=== PATIENT | male | born 1980 ===

== ENCOUNTER 2017-08-27 20:25 | Observation (INO) | payer OTHER ==
--- NOTE | 2017-08-27 21:43 | ED PDOC ---
HPI: Chest Pain Time Seen by Provider: 08/27/17 20:39 Chief Complaint (Nursing): Chest Pain Chief Complaint (Provider): Chest Pain History Per: Patient History/Exam Limitations: no limitations Onset/Duration Of Symptoms: Days (x1 week) Current Symptoms Are (Timing): Still Present Additional Complaint(s): Roddy Erickson is a 36 year old right hand dominant male with no significant past medical history who presents to the ED complaining of left sided chest pain x1 week. Patient states that over the course of a week the pain has begun radiating to his left arm with associated paresthesias all the way to his fingers. States he specifically feels numbness at the fingertips of his 1st, 2nd , and 3rd digits. Reports shortness of breath and decreased exercise tolerance. Confirms lightheadedness and fatigue. Denies any leg swelling, cough, fever, or chills. 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 PMD: None Past Medical History Reviewed: Historical Data, Nursing Documentation, Vital Signs Vital Signs: Last Vital Signs Temp 98.2 F 08/28/17 15:36 Pulse 72 08/28/17 15:36 Resp 20 08/28/17 15:36 BP 119/73 08/28/17 15:36 Pulse Ox 97 08/28/17 15:36 - Medical History PMH: No Chronic Diseases - Surgical History Surgical History: No Surg Hx - Family History Family History: States: Hypertension - Social History Current smoker - smoking cessation education provided: No Ex-Smoker (has not smoked in the last 12 months): No Alcohol: Social Drugs: Denies - Home Medications Home Medications: Ambulatory Orders Medication Instructions Recorded Naproxen [Naprosyn] 1 tab PO BID PRN #30 tab 08/27/17 Non-Formulary 1 ea .ROUTE ONCE #1 ea 08/27/17 - Allergies Allergies/Adverse Reactions: Allergies Allergy/AdvReac Type Severity Reaction Status Date / Time No Known Allergies Allergy Verified 08/27/17 20:35 Review of Systems ROS Statement: Except As Marked, All Systems Reviewed And Found Negative Constitutional: Positive for: Other (Fatigue). Negative for: Fever, Chills Cardiovascular: Positive for: Chest Pain (left sided with associated paresthesias to fingertips ), Light Headedness Respiratory: Positive for: Shortness of Breath, SOB with Exertion. Negative for : Cough Musculoskeletal: Negative for: Leg Pain (swelling) - Laboratory Results Result Diagrams: 08/27/17 21:50 08/27/17 21:50 - ECG ECG: Positive for: Interpreted By Me ECG Rhythm: Positive for: Normal QRS, Normal ST Segment, Sinus Rhythm O2 Sat by Pulse Oximetry: 98 (RA) Pulse Ox Interpretation: Normal - Radiology X-Ray: Interpreted by Me X-Ray Interpretation: No Acute Disease Medical Decision Making Medical Decision Making: Time: 21:16 Initial Impression: Chest pain and left sided paresthesias. Differentials include ACS, electrolyte abnormality, carpal tunnel, costochondritis, and anxiety Plan: --EKG --B-Type natriuretic peptide --CMP --Magnesium --Phosphorus --TSH --Troponin I --CBC w/ differential --D Dimer --Chest X-Ray 2 views --IV insertion --Reevaluation labs unremarkable. However repeat EKG demonstrates changes in lateral leads. Concern for ischemic changes. LIZ pt and Dr Quinn Hospitalist for observation to r/o ACS. Scribe Attestation: Documented by Howie Dsouza acting as a scribe for Makayla Albrecht MD. Scribe Attestation: All medical record entries made by the Scribe were at my direction and personally dictated by me. I have reviewed the chart and agree that the record accurately reflects my personal performance of the history, physical exam, medical decision making, and the department course for this patient. I have also personally directed, reviewed, and agree with the discharge instructions and disposition. Disposition - Clinical Impression Clinical Impression: Chest pain, Carpal tunnel syndrome of left wrist - Disposition Disposition Time: 00:00 Condition: SERIOUS - Pt Status Changed To: Hospital Disposition Of: Observation - POA Present On Arrival: None
[2017-08-27 21:58] LABS: BASO % 0.5 % (0.0-2.0); EOS # 0.1 K/uL (0.0-0.7); EOS % 1.2 % (0.0-4.0); HEMATOCRIT 45.4 % (35.0-51.0); LYMPH # 3.2 K/uL (1.0-4.3); LYMPH % 43.2 % (20.0-40.0); MEAN CELL VOLUME 88.5 fl (80.0-94.0); MEAN CORPUSCULAR HEMOGLOBIN 30.5 pg (27.0-31.0); MEAN CORPUSCULAR HGB CONC 34.4 g/dL (33.0-37.0); MEAN PLATELET VOLUME 8.9 fl (7.2-11.7); MONO # 0.6 K/uL (0.0-0.8); MONO % 8.4 % (0.0-10.0); NEUT # 3.4 K/uL (1.8-7.0); NEUT % 46.7 % (50.0-75.0); NRBC % 0.1 % (0.0-0.0); RED CELL DISTRIBUTION WIDTH 13.8 % (11.5-14.5); WHITE BLOOD COUNT 7.3 K/uL (4.8-10.8)
[2017-08-27 22:12] LABS: ALB/GLOB RATIO 1.3 (1.0-2.1); ALKALINE PHOSPHATASE 90 U/L (38-126); ALT/SGPT 213 U/L (21-72); AST/SGOT 82 U/L (17-59); BILIRUBIN,TOTAL 1.7 mg/dl (0.2-1.3); BLOOD UREA NITROGEN 13 mg/dl (9-20); CALCIUM 9.2 mg/dL (8.4-10.2); CARBON DIOXIDE 24 mmol/L (22-30); CHLORIDE 103 mmol/L (98-107); GFR AFRICAN-AMERICAN > 60; GLUCOSE,RANDOM 91 mg/dL (75-110); MAGNESIUM 2.2 MG/DL (1.6-2.3); PHOSPHOROUS 3.7 mg/dl (2.5-4.5); POTASSIUM 3.7 MMOL/L (3.6-5.0); SODIUM 138 mmol/l (132-148)
[2017-08-27 22:46] LABS: THYROID STIMULATING HORMONE 4.39 mIU/ML (0.46-4.68)
--- NOTE | 2017-08-27 23:26 | CP.PCM.HP ---
History of Present Illness - History of Present Illness History of Present Illness: PCP: None Chief Complaint: Chest Pain The patient was seen and examined in the ED HPI: 36 years old male speaking only [place], with no significant past medical hx, comes with 2 weeks of a pressure type, intermittent left chest pain that increases with exertion and radiates to the left upper extremity, with numbness down to the 1st, 2nd and 3rd fingers. The pain is not relieved by Advil and is associated with dizziness and nausea. He also refers numbness to the left upper and left lower extremities prior to the chest pain. No hx of trauma. He also has 2 days of diarrhea and urinary frequency. No Dysuria, Fever nor cough. 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 absent: Anorexia, Chills, Fatigue, Fever - EENT Eyes: absent: Blurred Vision, Diplopia, Floaters, Requires Corrective Lenses Ears: absent: Decreased Hearing, Tinnitus Nose/Mouth/Throat: absent: Epistaxis, Nasal Congestion, Sinus Pain, Sinus Pressure - Cardiovascular Cardiovascular: Chest Pain, Dyspnea. absent: Leg Edema - Respiratory Respiratory: absent: Cough, Hemoptysis, Wheezing, Snoring, Chest Congestion - Gastrointestinal Gastrointestinal: Diarrhea, Nausea. absent: Abdominal Pain, Constipation, Vomiting - Musculoskeletal Musculoskeletal: Numbness Additional comments: Chest Pain - Integumentary Integumentary: New Lesions. absent: Pruritus, Rash, Skin Ulcer, Striae, Swelling - Neurological Neurological: Dizziness, Paresthesias. absent: Confusion, Numbness, Focal Weakness, Headaches, Weakness Additional comments: Left upper and lower extremities numbness. - Psychiatric Psychiatric: Anxiety. absent: Depression, Panic Attacks - Endocrine Endocrine: absent: Palpitations, Polydipsia, Polyphagia, Polyuria - Hematologic/Lymphatic Hematologic: absent: Easy Bleeding, Easy Bruising Past Patient History - Past Medical History & Family History Past Medical History?: No - Past Social History Smoking Status: Light Smoker < 10 Cigarettes Daily Cigar Use: No Alcohol: Social Home Situation {Lives}: With Family - CARDIAC Hx Cardiac Disorders: No - PULMONARY Hx Respiratory Disorders: No - NEUROLOGICAL Hx Neurological Disorder: No - HEENT Hx HEENT Problems: No - RENAL Hx Chronic Kidney Disease: No - ENDOCRINE/METABOLIC Hx Endocrine Disorders: No - HEMATOLOGICAL/ONCOLOGICAL Hx Blood Disorders: No - INTEGUMENTARY Hx Dermatological Problems: No - MUSCULOSKELETAL/RHEUMATOLOGICAL Hx Musculoskeletal Disorders: No - GASTROINTESTINAL Hx Esophageal Varices: Yes - PSYCHIATRIC Hx Psychophysiologic Disorder: No Hx Substance Use: No - SURGICAL HISTORY Hx Surgeries: No - ANESTHESIA Hx Anesthesia: No Meds Home Medications: Home Medication List Medication Instructions Recorded Confirmed Type Naproxen [Naprosyn] 1 tab PO BID PRN #30 tab 08/27/17 Rx Non-Formulary 1 ea .ROUTE ONCE #1 ea 08/27/17 Rx Allergies/Adverse Reactions: Allergies Allergy/AdvReac Type Severity Reaction Status Date / Time No Known Allergies Allergy Verified 08/27/17 20:35 Physical Exam - Constitutional Appears: No Acute Distress - Head Exam Head Exam: ATRAUMATIC, NORMAL INSPECTION, NORMOCEPHALIC - Eye Exam Eye Exam: EOMI, Normal appearance Pupil Exam: NORMAL ACCOMODATION, PERRL - ENT Exam ENT Exam: Mucous Membranes Moist, Normal Exam, Normal External Ear Exam - Neck Exam Neck exam: Positive for: Full Rom, Normal Inspection, Tenderness. Negative for : Lymphadenopathy - Respiratory Exam Respiratory Exam: Clear to Auscultation Bilateral. absent: Rales, Rhonchi, Wheezes - Cardiovascular Exam Cardiovascular Exam: REGULAR RHYTHM, RRR, +S1, +S2 - Rectal Exam Rectal Exam: Deferred - Extremities Exam Extremities exam: Positive for: full ROM, normal inspection. Negative for: calf tenderness, joint swelling - Back Exam Back exam: NORMAL INSPECTION. absent: CVA tenderness (L), CVA tenderness (R) - Neurological Exam Neurological exam: Alert, CN II-XII Intact, Oriented x3, Reflexes Normal - Psychiatric Exam Psychiatric exam: Normal Affect, Normal Mood - Skin Skin Exam: Dry, Intact, Normal Color, Pallor Results - Vital Signs Recent Vital Signs: Last Vital Signs Temp 98.2 F 08/27/17 23:25 Pulse 66 08/27/17 23:25 Resp 20 08/27/17 23:25 BP 141/104 H 08/27/17 23:25 Pulse Ox 98 12/21/17 23:25 - Labs Result Diagrams: 08/27/17 21:50 08/27/17 21:50 Labs: Laboratory Results - last 24 hr 08/27/17 08/27/17 08/27/17 21:50 21:50 21:50 WBC 7.3 RBC 5.13 Hgb 15.6 Hct 45.4 MCV 88.5 MCH 30.5 MCHC 34.4 RDW 13.8 Plt Count 211 MPV 8.9 Neut % (Auto) 46.7 L Lymph % (Auto) 43.2 H [place] % (Auto) 8.4 Eos % (Auto) 1.2 Baso % (Auto) 0.5 Neut # 3.4 Lymph # 3.2 [place] # 0.6 Eos # 0.1 Baso # 0.0 D-Dimer, Quantitative 161 Sodium 138 Potassium 3.7 Chloride 103 Carbon Dioxide 24 Anion Gap 15 BUN 13 Creatinine 0.7 L Est GFR ( Amer) > 60 Est GFR (Non-Af Amer) > 60 Random Glucose 91 Calcium 9.2 Phosphorus 3.7 Magnesium 2.2 Total Bilirubin 1.7 H AST 82 H ALT 213 H Alkaline Phosphatase 90 Troponin I < 0.0120 NT-Pro-B Natriuret Pep 16.7 Total Protein 8.0 Albumin 4.5 Globulin 3.6 Albumin/Globulin Ratio 1.3 TSH 3rd Generation 4.39 - EKG Data EKG comments: EKG: !. NSR 63/min no sign of ischemia - Imaging and Cardiology Chest x-ray Status: Image reviewed by me Additional comment: No infiltrate CT scan - head Status: Image reviewed by me, Report reviewed by me Additional comment: EXAM: CT Head Without Intravenous Contrast FINDINGS: Brain: Minimal atrophy. No intracranial hemorrhage. No mass. Small parenchymal calcification. Dilated perivascular space vs chronic lacunar infarct about LEFT basal ganglia. No definite edema. Ventricles: No hydrocephalus. Bones/joints: No acute fracture. Soft tissues: Unremarkable. Sinuses: No acute sinusitis. Mastoid air cells: No mastoid effusion. Orbits: Unremarkable as visualized. IMPRESSION: 1. No definite acute intracranial abnormality. Acute infarction may be CT occult within first 24 hours. If a focal deficit persists, consider followup CT or MRI for further evaluation. 2. Incidental/non-acute findings are described above. Assessment & Plan - Assessment and Plan (Free Text) Assessment: #. Chest pain #. Elevated Liver enzynes #. Paresthesias to left upper and lower extremity #. Diarrhea #. Alcohol use Plan: 36 years old male speaking only [place], with no significant past medical hx, comes with 2 weeks of a pressure type, intermittent left chest pain that increases with exertion and radiates to the left upper extremity, with numbness down to the 1st, 2nd and 3rd fingers. He also refers numbness to the left upper and left lower extremities prior to the chest pain. No hx of trauma. He also has 2 days of diarrhea and urinary frequency. #. Chest pain, Could be musculo skeletal from work r/o ACS - Consult Dr Gonzalez Cardiology - Serial Troponin - EKG - ECHO #. Paresthesias to left upper and left lower extremities. No headaches nor neck pain, speech is clear and no weakness. He does refer some dizziness. r/o Herneated disc in the Cervical spine/ Cerebellar stroke less likely. Patient does heavy lifting in his job and so r/o stretched nerve at the neck - CT head shows no abnormality - Consult Dr chandra neurology - MRI of Brain and neck #. Elevated Liver enzymes with Alt > AST with elevated Biluribin. Alcohol liver disease possible but less likely. r/o Hepatitis - GGT - Hepatitis Panel - Follow Liver enzymes #. Diarrhea - C Diff - Stool for C&S #. Alcohol use - Banana Bag with Thiamine, Multivimin, Folic Acid #. Hx of Gastritis - Pepcid #. DVT prophylaxis with SCD #. Code Status: Full - Date & Time Date: 08/27/17 Time: 23:26
[2017-08-28] MEDS ORDERED: Multivitamin (MVI) 10 ML, Thiamine 100 MG in Sodium Chloride 0.9% 1,000 ML IV ONE (00:31)
[2017-08-28 08:00] LABS: CHOLESTEROL 230 mg/dL (0-199)
--- NOTE | 2017-08-28 08:03 | RAD ---
HISTORY: chest pain COMPARISON: No prior. TECHNIQUE: Chest PA and lateral FINDINGS: LUNGS: No active pulmonary disease. PLEURA: No significant pleural effusion identified. No pneumothorax apparent. CARDIOVASCULAR: Normal. OSSEOUS STRUCTURES: No significant abnormalities. VISUALIZED UPPER ABDOMEN: Normal. OTHER FINDINGS: None. IMPRESSION: No acute cardiopulmonary disease appreciated.
[2017-08-28 08:25] VITALS: RESP 20
--- NOTE | 2017-08-28 08:47 | CP.PCM.PN ---
Subjective - Date & Time of Evaluation Date of Evaluation: 08/28/17 Time of Evaluation: 08:00 - Subjective Subjective: No overnight events. Patient seen and evaluated at the bedside this morning. Denies complaints of chest pain overnight or this morning. Reports that his Left sided weakness- upper and lower extremity has resolved but he is still experiencing numbness in his first 3 digits of her left hand. Upon further questioning, pt admits to having posterior neck pain for the past month that he believes is from lifting heavy boxes for his job. Denies SOB, cough, headache, fever, chills, neck rigidity, photophobia, blurry vision, dysphagia. Objective - Vital Signs/Intake and Output Vital Signs (last 24 hours): Temp Pulse Resp BP Pulse Ox 98.6 F 77 20 136/75 96 08/28/17 08:00 08/28/17 08:00 08/28/17 08:00 08/28/17 08:00 08/28/17 08:00 - Medications Medications: Current Medications Atorvastatin Calcium (Lipitor) 10 mg PO DAILY JEREMY Famotidine (Pepcid) 20 mg PO BID JEREMY Last Admin: 08/28/17 01:19 Dose: 20 mg Multivitamins/Vitamin C 10 ml/Thiamine HCl 100 mg/ Sodium Chloride 1,011 mls @ 100 mls/hr IV .Q10H7M ONE Stop: 08/28/17 10:37 Last Admin: 08/28/17 03:11 Dose: 100 mls/hr Lorazepam (Ativan) 0.5 mg IVP Q6 PRN PRN Reason: Agitation - Labs Labs: 08/27/17 21:50 08/27/17 21:50 - Constitutional Appears: Well, Non-toxic, No Acute Distress - Head Exam Head Exam: ATRAUMATIC, NORMAL INSPECTION - Eye Exam Eye Exam: EOMI, Normal appearance, PERRL. absent: Nystagmus, Scleral icterus Pupil Exam: PERRL - ENT Exam ENT Exam: Mucous Membranes Moist - Neck Exam Neck Exam: Full ROM, Tenderness. absent: Lymphadenopathy, Meningismus, Thyromegaly Additional comments: Tenderness to palpation in posterior neck, no masses palpated, full ROM, patient reports pain on full flexion of neck - Respiratory Exam Respiratory Exam: Clear to Ausculation Bilateral. absent: Accessory Muscle Use , Rales, Wheezes, Respiratory Distress - Cardiovascular Exam Cardiovascular Exam: +S2. absent: Murmur Additional comments: Mild tenderness to palpation over left chest wall - GI/Abdominal Exam GI & Abdominal Exam: Soft, Normal Bowel Sounds. absent: Distended, Tenderness, Hernia, Organomegaly - Extremities Exam Extremities Exam: Normal Capillary Refill, Normal Inspection. absent: Calf Tenderness, Pedal Edema - Back Exam Back Exam: NORMAL INSPECTION. absent: vertebral tenderness - Neurological Exam Neurological Exam: Alert, Awake, CN II-XII Intact, Oriented x3. absent: Motor Sensory Deficit Neuro motor strength exam: Left Upper Extremity: 5, Right Upper Extremity: 5, Left Lower Extremity: 5, Right Lower Extremity: 5 - Psychiatric Exam Psychiatric exam: Normal Affect - Skin Skin Exam: Normal Color Assessment and Plan - Assessment and Plan (Free Text) Assessment: 36 years old male speaking only [place] Citizen, with no significant past medical hx, comes with 2 weeks of a pressure type, intermittent left chest pain that increases with exertion and radiates to the left upper extremity, with numbness down to the 1st, 2nd and 3rd fingers. He also refers numbness to the left upper and left lower extremities prior to the chest pain. No hx of trauma. He also has 2 days of diarrhea and urinary frequency. # Chest pain, Atypical -Could be MSK strain from work. Tender to palpation. Need to r/o ACS -EKG NSR, Troponin negative x2 -Repeat EKG in am - Cardiac consultation appreciated- Atypical chest pain, No evidence of ACS, will review echo - ECHO normal, EF>55% # Paresthesias, unilateral, acute -Pt's hx of neck pain and dermatomal distribution of sensory loss suggestive of Cervical Radiculopathy. Need to rule out CVA. 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 - CT head shows no abnormality - Consult Dr chandra neurology - MRI of Brain and neck - Cervical Spine MRI - F/u B12, Folate, RPR #. Elevated Liver enzymes with Alt > AST with elevated Biluribin. Alcohol liver disease possible but less likely. r/o Hepatitis - GGT - Hepatitis Panel normal - Follow Liver enzymes # Diarrhea - Improving - C Diff sent - Stool for C&S - C/W IV hydration # Alcohol use - Banana Bag with Thiamine, Multivimin, Folic Acid -Monitor for signs of ETOH withdrawal # Hx of Gastritis - Pepcid #. DVT prophylaxis with SCD #. Code Status: Full
[2017-08-28] MEDS ORDERED: Gadodiamide 287 MG/ML VIAL (15ML) IV ONE (09:42)
--- NOTE | 2017-08-28 11:01 | CT ---
PROCEDURE: CT HEAD WITHOUT CONTRAST. HISTORY: Numbness to left upper and left lower extremities COMPARISON: None available. TECHNIQUE: Axial computed tomography images were obtained through the head/brain without intravenous contrast. Radiation dose: Total exam DLP = 840.84 mGy-cm. This CT exam was performed using one or more of the following dose reduction techniques: Automated exposure control, adjustment of the mA and/or kV according to patient size, and/or use of iterative reconstruction technique. FINDINGS: HEMORRHAGE: No intracranial hemorrhage. BRAIN: No mass effect or edema. No atrophy or chronic microvascular ischemic changes. Nodular calcification right parietal, possibly parenchymal versus cortical. Nonspecific. No evidence of acute infarct. VENTRICLES: Unremarkable. No hydrocephalus. CALVARIUM: Unremarkable. PARANASAL SINUSES: Unremarkable as visualized. No significant inflammatory changes. MASTOID AIR CELLS: Unremarkable as visualized. No inflammatory changes. OTHER FINDINGS: None. IMPRESSION: No intracranial mass, hemorrhage or evidence of acute infarct. Preliminary interpretation of this examination was reported by [facility] at 1:19 a.m. on 08/28/2017. There is concurrence of this report with the preliminary interpretation.
--- NOTE | 2017-08-28 11:18 | CP.PCM.CON ---
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 This was not accompanied by any nausea vomiting or abrupt perspiration. The patient has no prior illness and does not take any medications. He denies any history of hypertension or diabetes or dyslipidemia. Has no prior cardiac issues. Denies history of smoking or excessive alcohol use. Denies any recreational drug use. There is no significant family history. The patient was not taking any medications in the past. Physical examination shows an anxious young man who is slightly overweight. He is alert awake" weren't. Afebrile. His pulse rate was 68 bpm and regular and his blood pressure was 124/74 mmHg. His extremities were warm his nailbeds were pink. There was no central or peripheral cyanosis. There was no clubbing. There was mild degree of tenderness in the left pectoral area there is discomfort corresponded to the type of pain the patient had experienced before coming into the hospital. His apex was not palpable. His first and second heart sounds are normal. There was no murmur or gallop. There were no rales. His abdomen was soft liver and spleen are not palpable. His electrocardiograms done 3 times since his arrival in the emergency room show consistently sinus rhythm with normal EKG pattern. There was no ST-T changes suggestive of myocardial ischemia. His troponin levels were normal which indicated that there had been no myocyte injury. The patient awaits an echocardiogram and just finished having his EEG. MRI of the brain has not revealed any acute pathological findings. Impression: Atypical chest pain with no evidence of acute coronary syndrome. Rule out cervical radiculopathy. The patient is stable from cardiovascular point of few I Will review echocardiographic images once the echocardiogram is done. Past Patient History - Past Medical History & Family History Past Medical History?: No - Past Social History Smoking Status: Light Smoker < 10 Cigarettes Daily Cigar Use: No Alcohol: Social Home Situation {Lives}: With Family - CARDIAC Hx Cardiac Disorders: No - PULMONARY Hx Respiratory Disorders: No - NEUROLOGICAL Hx Neurological Disorder: No - HEENT Hx HEENT Problems: No - RENAL Hx Chronic Kidney Disease: No - ENDOCRINE/METABOLIC Hx Endocrine Disorders: No - HEMATOLOGICAL/ONCOLOGICAL Hx Blood Disorders: No - INTEGUMENTARY Hx Dermatological Problems: No - MUSCULOSKELETAL/RHEUMATOLOGICAL Hx Musculoskeletal Disorders: No - GASTROINTESTINAL Hx Esophageal Varices: Yes - GENITOURINARY/GYNECOLOGICAL Hx Genitourinary Disorders: No - PSYCHIATRIC Hx Psychophysiologic Disorder: No Hx Substance Use: No - SURGICAL HISTORY Hx Surgeries: No - ANESTHESIA Hx Anesthesia: No Meds Home Medications: Home Medication List Medication Instructions Recorded Confirmed Type Naproxen [Naprosyn] 1 tab PO BID PRN #30 tab 08/27/17 Rx Non-Formulary 1 ea .ROUTE ONCE #1 ea 08/27/17 Rx Allergies/Adverse Reactions: Allergies Allergy/AdvReac Type Severity Reaction Status Date / Time No Known Allergies Allergy Verified 08/27/17 20:35 - Medications Medications: Current Medications Atorvastatin Calcium (Lipitor) 10 mg PO HS JEREMY Famotidine (Pepcid) 20 mg PO BID JEREMY Last Admin: 08/28/17 01:19 Dose: 20 mg Lorazepam (Ativan) 0.5 mg IVP Q6 PRN PRN Reason: Agitation Results - Vital Signs Recent Vital Signs: Last Vital Signs Temp 98.6 F 08/28/17 08:00 Pulse 77 08/28/17 08:00 Resp 20 08/28/17 08:00 BP 136/75 08/28/17 08:00 Pulse Ox 96 08/28/17 08:00 - Labs Result Diagrams: 08/27/17 21:50 08/27/17 21:50 Labs: Laboratory Results - last 24 hr 08/27/17 08/27/17 08/27/17 21:50 21:50 21:50 WBC 7.3 RBC 5.13 Hgb 15.6 Hct 45.4 MCV 88.5 MCH 30.5 MCHC 34.4 RDW 13.8 Plt Count 211 MPV 8.9 Neut % (Auto) 46.7 L Lymph % (Auto) 43.2 H [place] % (Auto) 8.4 Eos % (Auto) 1.2 Baso % (Auto) 0.5 Neut # 3.4 Lymph # 3.2 [place] # 0.6 Eos # 0.1 Baso # 0.0 D-Dimer, Quantitative 161 Sodium 138 Potassium 3.7 Chloride 103 Carbon Dioxide 24 Anion Gap 15 BUN 13 Creatinine 0.7 L Est GFR ( Amer) > 60 Est GFR (Non-Af Amer) > 60 Random Glucose 91 Calcium 9.2 Phosphorus 3.7 Magnesium 2.2 Total Bilirubin 1.7 H GGT AST 82 H ALT 213 H Alkaline Phosphatase 90 Troponin I < 0.0120 NT-Pro-B Natriuret Pep 16.7 Total Protein 8.0 Albumin 4.5 Globulin 3.6 Albumin/Globulin Ratio 1.3 Triglycerides Cholesterol LDL Cholesterol Direct HDL Cholesterol TSH 3rd Generation 4.39 08/28/17 04:40 WBC RBC Hgb Hct MCV MCH MCHC RDW Plt Count MPV Neut % (Auto) Lymph % (Auto) [place] % (Auto) Eos % (Auto) Baso % (Auto) Neut # Lymph # [place] # Eos # Baso # D-Dimer, Quantitative Sodium Potassium Chloride Carbon Dioxide Anion Gap BUN Creatinine Est GFR ( Amer) Est GFR (Non-Af Amer) Random Glucose Calcium Phosphorus Magnesium Total Bilirubin GGT Cancelled AST ALT Alkaline Phosphatase Troponin I < 0.0120 NT-Pro-B Natriuret Pep Total Protein Albumin Globulin Albumin/Globulin Ratio Triglycerides 140 Cholesterol 230 H LDL Cholesterol Direct 155 H HDL Cholesterol 46 TSH 3rd Generation
--- NOTE | 2017-08-28 12:44 | CARD ---
APPROVED REPORT EXAM: Two-dimensional and M-mode echocardiogram with Doppler and color Doppler. Other Information Quality : GoodRhythm : NSR INDICATION Chest Pain 2D DIMENSIONS IVSd1.12 (0.7-1.1cm)LVDd4.46 (3.9-5.9cm) LVOT Diameter2.28 (1.8-2.4cm)PWd1.08 (0.7-1.1cm) IVSs1.43 (0.8-1.2cm)LVDs3.31 (2.5-4.0cm) FS (%) 25.8 %PWs1.44 (0.8-1.2cm) M-Mode DIMENSIONS Left Atrium (MM)3.65 (2.5-4.0cm)IVSd1.15 (0.7-1.1cm) Aortic Root3.44 (2.2-3.7cm)LVDd4.97 (4.0-5.6cm) Aortic Cusp Exc.2.24 (1.5-2.0cm)PWd0.97 (0.7-1.1cm) IVSs1.41 cmFS (%) 28 % LVDs3.59 (2.0-3.8cm)PWs1.47 cm Mitral Valve MV E Bprbltkc71.3cm/sMV DECEL [id number] A Uhgmxeyf73.9cm/s MV REW92zzL/A ratio1.3MVA (PHT)2.56cm2 TDI Lateral E' Peak V14.67cm/sMedial E' Peak V6.68cm/sE/Lateral E'3.1 E/Medial E'6.8 Pulmonary Valve PV Peak Srpixfrg99.1cm/s LEFT VENTRICLE The left ventricle is normal size. There is normal left ventricular wall thickness. The left ventricular function is normal. The left ventricular ejection fraction is 55% There is normal LV segmental wall motion. The left ventricular diastolic function is normal. No left ventricle thrombus noted on this study. There is no ventricular septal defect visualized. There is no left ventricular aneurysm. There is no mass noted in the left ventricle. RIGHT VENTRICLE The right ventricle is normal size. There is normal right ventricular wall thickness. The right ventricular systolic function is normal. ATRIA The left atrium size is normal. The right atrium size is normal. The interatrial septum is intact with no evidence for an atrial septal defect. AORTIC VALVE The aortic valve is normal in structure. No aortic regurgitation is present. There is no aortic valvular stenosis. There is no aortic valvular vegetation. MITRAL VALVE The mitral valve is normal in structure. There is no evidence of mitral valve prolapse. There is no mitral valve stenosis. There is no mitral valve regurgitation noted. TRICUSPID VALVE The tricuspid valve is normal in structure. There is no tricuspid valve regurgitation noted. There is no tricuspid valve prolapse or vegetation. There is no tricuspid valve stenosis. PULMONIC VALVE The pulmonary valve is normal in structure. There is no pulmonic valvular regurgitation. There is no pulmonic valvular stenosis. GREAT VESSELS The aortic root is normal in size. The ascending aorta is normal in size. The IVC is normal in size and collapses >50% with inspiration. PERICARDIAL EFFUSION The pericardium appears normal. There is no pleural effusion. <Conclusion> Normal Echocardiogram
--- NOTE | 2017-08-28 14:31 | CP.PCM.CON ---
History of Present Illness - History of Present Illness History of Present Illness: Mr. Fabio Erickson is a 36-year-old man with no significant past medical history, who presented to the ED complaining of left arm numbness that he feels in his thumb , index and middle finger that spans up to his elbow. He also complains of some neck pain and had initially complained of left sided chest pain as well that was not relieved by NSAIDs. Labs showed elevated liver enzymes, the patient admits to drinking, but denies heavy drinking. MRI of the brain and cervical spine was unremarkable and his cerebrovascular system was normal. Review of Systems - Review of Systems All systems: reviewed and no additional remarkable complaints except Past Patient History - Past Medical History & Family History Past Medical History?: No - Past Social History Smoking Status: Light Smoker < 10 Cigarettes Daily Cigar Use: No Alcohol: Social Home Situation {Lives}: With Family - CARDIAC Hx Cardiac Disorders: No - PULMONARY Hx Respiratory Disorders: No - NEUROLOGICAL Hx Neurological Disorder: No - HEENT Hx HEENT Problems: No - RENAL Hx Chronic Kidney Disease: No - ENDOCRINE/METABOLIC Hx Endocrine Disorders: No - HEMATOLOGICAL/ONCOLOGICAL Hx Blood Disorders: No - INTEGUMENTARY Hx Dermatological Problems: No - MUSCULOSKELETAL/RHEUMATOLOGICAL Hx Musculoskeletal Disorders: No - GASTROINTESTINAL Hx Esophageal Varices: Yes - GENITOURINARY/GYNECOLOGICAL Hx Genitourinary Disorders: No - PSYCHIATRIC Hx Psychophysiologic Disorder: No Hx Substance Use: No - SURGICAL HISTORY Hx Surgeries: No - ANESTHESIA Hx Anesthesia: No Meds Home Medications: Home Medication List Medication Instructions Recorded Confirmed Type Naproxen [Naprosyn] 1 tab PO BID PRN #30 tab 08/27/17 Rx Non-Formulary 1 ea .ROUTE ONCE #1 ea 08/27/17 Rx Allergies/Adverse Reactions: Allergies Allergy/AdvReac Type Severity Reaction Status Date / Time No Known Allergies Allergy Verified 08/27/17 20:35 - Medications Medications: Current Medications Atorvastatin Calcium (Lipitor) 10 mg PO HS JEREMY Famotidine (Pepcid) 20 mg PO BID JEREMY Last Admin: 08/28/17 01:19 Dose: 20 mg Lorazepam (Ativan) 0.5 mg IVP Q6 PRN PRN Reason: Agitation Physical Exam - Constitutional Appears: Well - Head Exam Head Exam: ATRAUMATIC, NORMAL INSPECTION, NORMOCEPHALIC - Eye Exam Eye Exam: EOMI, Normal appearance, PERRL - ENT Exam ENT Exam: Mucous Membranes Moist, Normal Exam - Neck Exam Neck exam: Positive for: Normal Inspection - Respiratory Exam Respiratory Exam: Clear to Auscultation Bilateral, NORMAL BREATHING PATTERN - Cardiovascular Exam Cardiovascular Exam: REGULAR RHYTHM, +S1, +S2 - GI/Abdominal Exam GI & Abdominal Exam: Normal Bowel Sounds, Soft. absent: Tenderness - Rectal Exam Rectal Exam: Deferred - Neurological Exam Neurological exam: Alert, CN II-XII Intact, Normal Gait, Oriented x3, Reflexes Normal Additional comments: Decreased sensation in the distribution of the radial nerve. - Psychiatric Exam Psychiatric exam: Normal Affect, Normal Mood - Skin Skin Exam: Dry, Intact, Normal Color, Warm Results - Vital Signs Recent Vital Signs: Last Vital Signs Temp 98.3 F 08/28/17 13:00 Pulse 68 08/28/17 13:00 Resp 20 08/28/17 13:00 BP 124/70 08/28/17 13:00 Pulse Ox 97 08/28/17 13:00 - Labs Result Diagrams: 08/27/17 21:50 08/27/17 21:50 Labs: Laboratory Results - last 24 hr 08/27/17 08/27/17 08/27/17 21:50 21:50 21:50 WBC 7.3 RBC 5.13 Hgb 15.6 Hct 45.4 MCV 88.5 MCH 30.5 MCHC 34.4 RDW 13.8 Plt Count 211 MPV 8.9 Neut % (Auto) 46.7 L Lymph % (Auto) 43.2 H [place] % (Auto) 8.4 Eos % (Auto) 1.2 Baso % (Auto) 0.5 Neut # 3.4 Lymph # 3.2 [place] # 0.6 Eos # 0.1 Baso # 0.0 D-Dimer, Quantitative 161 Sodium 138 Potassium 3.7 Chloride 103 Carbon Dioxide 24 Anion Gap 15 BUN 13 Creatinine 0.7 L Est GFR ( Amer) > 60 Est GFR (Non-Af Amer) > 60 Random Glucose 91 Hemoglobin A1c Calcium 9.2 Phosphorus 3.7 Magnesium 2.2 Total Bilirubin 1.7 H GGT AST 82 H ALT 213 H Alkaline Phosphatase 90 Troponin I < 0.0120 NT-Pro-B Natriuret Pep 16.7 Total Protein 8.0 Albumin 4.5 Globulin 3.6 Albumin/Globulin Ratio 1.3 Triglycerides Cholesterol LDL Cholesterol Direct HDL Cholesterol TSH 3rd Generation 4.39 Hepatitis A IgM Ab Hep Bs Antigen Hep B Core IgM Ab Hepatitis C Antibody 08/28/17 08/28/17 08/28/17 04:40 04:40 08:54 WBC RBC Hgb Hct MCV MCH MCHC RDW Plt Count MPV Neut % (Auto) Lymph % (Auto) [place] % (Auto) Eos % (Auto) Baso % (Auto) Neut # Lymph # [place] # Eos # Baso # D-Dimer, Quantitative Sodium Potassium Chloride Carbon Dioxide Anion Gap BUN Creatinine Est GFR ( Amer) Est GFR (Non-Af Amer) Random Glucose Hemoglobin A1c 5.8 Calcium Phosphorus Magnesium Total Bilirubin GGT Cancelled AST ALT Alkaline Phosphatase Troponin I < 0.0120 NT-Pro-B Natriuret Pep Total Protein Albumin Globulin Albumin/Globulin Ratio Triglycerides 140 Cholesterol 230 H LDL Cholesterol Direct 155 H HDL Cholesterol 46 TSH 3rd Generation Hepatitis A IgM Ab Negative Hep Bs Antigen Negative Hep B Core IgM Ab Negative Hepatitis C Antibody Negative Assessment & Plan (1) Radial nerve entrapment Assessment and Plan: This is likely due to compression at the radial groove and appears to be mild. He has very mild symptoms and neuroimaging is normal. I recommend follow up in the outpatient setting in two weeks with nerve conduction studies/EMG if symptoms due not resolve. Thank you. Status: Acute Priority: High
--- NOTE | 2017-08-28 14:51 | CP.PCM.DIS ---
Provider - Provider Date of Admission: 08/27/17 23:19 Attending physician: Lawson Quinn Time Spent in preparation of Discharge (in minutes): 30 Hospital Course - Lab Results Lab Results: Most Recent Lab Values WBC 7.3 K/uL (4.8-10.8) 08/27/17 21:50 RBC 5.13 Mil/uL (4.40-5.90) 08/27/17 21:50 Hgb 15.6 g/dL (12.0-18.0) 08/27/17 21:50 Hct 45.4 % (35.0-51.0) 08/27/17 21:50 MCV 88.5 fl (80.0-94.0) 08/27/17 21:50 MCH 30.5 pg (27.0-31.0) 08/27/17 21:50 MCHC 34.4 g/dL (33.0-37.0) 08/27/17 21:50 RDW 13.8 % (11.5-14.5) 08/27/17 21:50 Plt Count 211 K/uL (130-400) 08/27/17 21:50 MPV 8.9 fl (7.2-11.7) 08/27/17 21:50 Neut % (Auto) 46.7 % (50.0-75.0) L 08/27/17 21:50 Lymph % (Auto) 43.2 % (20.0-40.0) H 08/27/17 21:50 [place] % (Auto) 8.4 % (0.0-10.0) 08/27/17 21:50 Eos % (Auto) 1.2 % (0.0-4.0) 08/27/17 21:50 Baso % (Auto) 0.5 % (0.0-2.0) 08/27/17 21:50 Neut # 3.4 K/uL (1.8-7.0) 08/27/17 21:50 Lymph # 3.2 K/uL (1.0-4.3) 08/27/17 21:50 [place] # 0.6 K/uL (0.0-0.8) 08/27/17 21:50 Eos # 0.1 K/uL (0.0-0.7) 08/27/17 21:50 Baso # 0.0 K/uL (0.0-0.2) 08/27/17 21:50 D-Dimer, Quantitative 161 ng/mlDDU (0-230) 08/27/17 21:50 Sodium 138 mmol/l (132-148) 08/27/17 21:50 Potassium 3.7 MMOL/L (3.6-5.0) 08/27/17 21:50 Chloride 103 mmol/L (98-107) 08/27/17 21:50 Carbon Dioxide 24 mmol/L (22-30) 08/27/17 21:50 Anion Gap 15 (10-20) 08/27/17 21:50 BUN 13 mg/dl (9-20) 08/27/17 21:50 Creatinine 0.7 mg/dl (0.8-1.5) L 08/27/17 21:50 Est GFR ( Amer) > 60 08/27/17 21:50 Est GFR (Non-Af Amer) > 60 08/27/17 21:50 Random Glucose 91 mg/dL (75-110) 08/27/17 21:50 Hemoglobin A1c 5.8 % (4.2-6.5) 08/28/17 08:54 Calcium 9.2 mg/dL (8.4-10.2) 08/27/17 21:50 Phosphorus 3.7 mg/dl (2.5-4.5) 08/27/17 21:50 Magnesium 2.2 MG/DL (1.6-2.3) 08/27/17 21:50 Total Bilirubin 1.7 mg/dl (0.2-1.3) H 08/27/17 21:50 GGT Cancelled 08/28/17 04:40 AST 82 U/L (17-59) H 08/27/17 21:50 ALT 213 U/L (21-72) H 08/27/17 21:50 Alkaline Phosphatase 90 U/L (38-126) 08/27/17 21:50 Troponin I < 0.0120 ng/mL (0.00-0.120) 08/28/17 04:40 NT-Pro-B Natriuret Pep 16.7 pg/ml (0-450) 08/27/17 21:50 Total Protein 8.0 G/DL (6.3-8.2) 08/27/17 21:50 Albumin 4.5 g/dL (3.5-5.0) 08/27/17 21:50 Globulin 3.6 gm/dL (2.2-3.9) 08/27/17 21:50 Albumin/Globulin Ratio 1.3 (1.0-2.1) 08/27/17 21:50 Triglycerides 140 mg/DL (0-149) 08/28/17 04:40 Cholesterol 230 mg/dL (0-199) H 08/28/17 04:40 LDL Cholesterol Direct 155 mg/dL (0-129) H 08/28/17 04:40 HDL Cholesterol 46 MG/DL (30-70) 08/28/17 04:40 TSH 3rd Generation 4.39 mIU/ML (0.46-4.68) 08/27/17 21:50 Hepatitis A IgM Ab Negative (NEGATIVE) 08/28/17 04:40 Hep Bs Antigen Negative (NEGATIVE) 08/28/17 04:40 Hep B Core IgM Ab Negative (NEGATIVE) 08/28/17 04:40 Hepatitis C Antibody Negative (NEGATIVE) 08/28/17 04:40 - Hospital Course Hospital Course: Hospital Course: 36 y/o male with no significant PMHx presents to hospital with acute chest pain and left sided numbness in his digits. ACS ruled out, EKG was normal and serial troponins were negative. Pt had Head CT, Brain, and C spine MRI that were all unremarkable. He was seen by neurology and cleared. Pt likely has radial nerve entrapment that is causing his sensory defects. Pt advised to follow up with neurology outpatient for nerve conductions studies if symptoms persists. Pt was also found to have elevated ALT, hepatitis panel was normal. # Chest pain, Atypical -Could be MSK strain from work. Tender to palpation. -EKG NSR, Troponin negative x2 - Cardiac consultation appreciated- Atypical chest pain, No evidence of ACS - ECHO normal, EF>55% # Paresthesias, unilateral, acute -Pt's hx of neck pain and dermatomal distribution of sensory loss suggestive of Radial nerve entrapment. 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 - CT head shows no abnormality - Consulted Dr chandra neurology - MRI of Brain and neck normal - Cervical Spine MRI nromal - F/U outpatient for EMG and nerve conduction studies #. Elevated Liver enzymes with Alt > AST with elevated Biluribin. Alcohol liver disease possible but less likely. r/o Hepatitis - GGT - Hepatitis Panel normal -Hepatitis serology normal' Discharge Medications: Naproxen, 1 tablet PO BID Discharge Instructions: F/U neurology outpatient. Discharge Exam - Head Exam Head Exam: ATRAUMATIC, NORMAL INSPECTION, NORMOCEPHALIC - ENT Exam ENT Exam: Mucous Membranes Moist - Respiratory Exam Respiratory Exam: Clear to PA & Lateral. absent: Chest Wall Tenderness, Rhonchi , Wheezes, Respiratory Distress, NORMAL BREATHING PATTERN - Cardiovascular Exam Cardiovascular Exam: REGULAR RHYTHM, +S1, +S2. absent: Systolic Murmur - GI/Abdominal Exam GI & Abdominal Exam: Normal Bowel Sounds, Soft. absent: Distended, Tenderness - Extremities Exam Extremities exam: normal inspection - Back Exam Back exam: NORMAL INSPECTION - Neurological Exam Neurological exam: Alert, CN II-XII Intact, Oriented x3 - Psychiatric Exam Psychiatric exam: Normal Affect - Skin Skin Exam: Normal Color Discharge Plan - Discharge Medications Prescriptions: Naproxen [Naprosyn] 1 tab PO BID PRN #30 tab PRN Reason: Pain Non-Formulary 1 ea .ROUTE ONCE #1 ea - Follow Up Plan Condition: STABLE Disposition: HOME/ ROUTINE Instructions: Carpal Tunnel Syndrome (ED), Paresthesia (ED), Noncardiac Chest Pain (ED), Radial Nerve Palsy (GEN) Referrals: [facility] [place] [Outside] ([facility])
--- NOTE | 2017-08-28 14:54 | MRI ---
PROCEDURE: MRI BRAIN WITHOUT CONTRAST HISTORY: Numbness to left upper and left lower extremities COMPARISON: Comparison is made with the previous same-day CT of the head without contrast. TECHNIQUE: Multiplanar, multisequence MR images of the brain were obtained without intravenous contrast enhancement. FINDINGS: HEMORRHAGE: None DWI: No evidence of an acute or early subacute infarction. BRAIN PARENCHYMA: No mass effect or edema. No atrophy or chronic microvascular ischemic changes. VENTRICLES: Unremarkable. No hydrocephalus. CRANIUM: Unremarkable. ORBITS: Grossly unremarkable. PARANASAL SINUSES/MASTOIDS: Clear VASCULAR SYSTEM: Skull base flow voids intact. OTHER FINDINGS: None. IMPRESSION: No evidence of acute infarction or intracranial hemorrhage. No evidence of mass lesion mass effect or midline shift.
--- NOTE | 2017-08-28 15:08 | MRI ---
PROCEDURE: Magnetic Resonance Angiography Brain HISTORY: numbnes COMPARISON: None available. TECHNIQUE: 3D time of flight MR angiography of the intracranial arteries was performed. Rotating maximum intensity projection images were generated. FINDINGS: INTERNAL CAROTID ARTERIES: Unremarkable. The skull base, petrous, cavernous and supraclinoid segments are bilaterally widely patient. ANTERIOR CEREBRAL ARTERIES: Unremarkable. A1 and A2 segments are widely patent. Smaller distal branches unremarkable, as visualized. MIDDLE CEREBRAL ARTERIES: Unremarkable. M1 and M2 segments are widely patent. Perisylvian branches grossly symmetric. POSTERIOR CIRCULATION: Basilar Artery: Unremarkable. Distal Vertebral Arteries: Unremarkable. Posterior Cerebral Arteries: Unremarkable. Posterior Inferior Cerebellar Arteries: Unremarkable. ANEURYSM/ VASCULAR MALFORMATIONS: None. OTHER FINDINGS: None. IMPRESSION: Unremarkable MR angiography of the brain.
--- NOTE | 2017-08-28 15:08 | MRI ---
PROCEDURE: MR CERVICAL SPINE WITH AND WITHOUT CONTRAST HISTORY: numbness to the left upper and left lower extremiti COMPARISON: None available. TECHNIQUE: Multiecho multiplanar sequences were performed through the cervical spine with and without the use of intravenous contrast. FINDINGS: There is mild straightening of the Normal lordotic curvature without fracture or spondylolisthesis identified. Matter signal is dark across all sequences suspicious for possible anemia or other mid mildly improved proliferative disorder. Clinically correlate. Diffuse disc desiccation is identified. No prominent spondylosis. Craniocervical junction unremarkable. Vertebral body heights preserved. Normal intrinsic signal throughout the cervical cord. No paraspinal abnormality. No abnormal intrathecal or epidural enhancement C2-3: No disc herniation, spinal canal stenosis or neural foraminal narrowing. C3-4: No disc herniation, spinal canal stenosis or neural foraminal narrowing. Limited disc bulging inverse the ventral thecal sac minimally. C4-5: No disc herniation, spinal canal stenosis or neural foraminal narrowing. Limited disc bulging inverse the ventral thecal sac minimally. C5-C6: No disc herniation, spinal canal stenosis or neural foraminal narrowing. Limited disc bulging inverse the ventral thecal sac minimally. C6-C7: No disc herniation, spinal canal stenosis or neuroforaminal narrowing. Limited disc bulging inverse the ventral thecal sac minimally. C7-T1: No disc herniation, spinal canal stenosis or neural foraminal narrowing. OTHER FINDINGS: None. IMPRESSION: No disc herniation, central canal or neural foraminal stenosis is encountered throughout the cervical spine although minimal disc bulging inverse of ventral thecal sac from C3-4 -C6-7 inclusively. There is no abnormal intrathecal or epidural enhancement following gadolinium administration and the cervical cord is normal in intrinsic signal, course caliber and contour.
--- NOTE | 2017-08-28 15:08 | MRI ---
PROCEDURE: MR Angiography of the neck without contrast HISTORY: numbness COMPARISON: None available. TECHNIQUE: 3D [id number] angiography of the neck was performed. Rotating maximum intensity projection images of the cervical carotid and vertebral arteries were generated. The origins of the common carotid arteries were not visualized, which is a limitation inherent to the non-contrast time of flight technique. FINDINGS: RIGHT CAROTID ARTERIES: Common Carotid Artery: Normal. Carotid Bifurcation: Normal. Internal Carotid Artery:Normal. External Carotid Artery (proximal branches): Normal. LEFT CAROTID ARTERIES: Common Carotid Artery: Normal. Carotid Bifurcation: Normal. Internal Carotid Artery:Normal. External Carotid Artery (proximal branches): Normal. VERTEBRAL ARTERIES: Right Vertebral Artery: Normal. Left Vertebral Artery: Normal. OTHER FINDINGS: None. IMPRESSION: Normal MR Angiography of the neck.
[2017-08-28 15:37] VITALS: BP 119/73; PULSE 72; TEMP 98.2
--- NOTE | 2017-08-28 15:50 | CARD ---
APPROVED REPORT EKG Measurement Heart [id number] <Conclusion> Normal sinus rhythm Normal ECG
--- NOTE | 2017-08-28 15:52 | CARD ---
APPROVED REPORT EKG Measurement Heart [id number] <Conclusion> Normal sinus rhythm Normal ECG
--- NOTE | 2017-08-28 15:52 | CARD ---
APPROVED REPORT EKG Measurement Heart [id number] <Conclusion> Normal sinus rhythm Nonspecific T wave abnormality Abnormal ECG
[2017-08-28 15:54] VITALS: O2SAT 98
[2017-08-28 21:07] LABS: FOLATE > 20.0 ng/mL
== END 2017-08-28 17:35 | disposition home or self-care (01) ==
LOC: H.ER 20:25 → H.ERHOLD 23:19 → H.TEL 08-28 02:21
PROVIDERS: ADMIT Internal Medicine; ATTEND Internal Medicine
DX: R07.89 Other chest pain (principal); R20.2 Paresthesia of skin; R74.8 Abnormal levels of other serum enzymes; K29.70 Gastritis, unspecified, without bleeding; F17.210 Nicotine dependence, cigarettes, uncomplicated; R19.7 Diarrhea, unspecified; Z72.89 Other problems related to lifestyle; R35.0 Frequency of micturition